=== PATIENT | female | born 1970 | race Caucasian/White ===

== ENCOUNTER 2016-07-05 23:12 | Emergency (ER) | payer MEDICAID ==
[~2016-07-05] VITALS: Ht 165.1 cm; Wt 68.0 kg
[2016-07-05 23:12] VITALS: BP 157/109; PULSE 118; RESP 16; TEMP 97.8; O2SAT 96
[2016-07-05] MEDS ORDERED: IBUPROFEN 800 MG TABLET PO ONE (23:15)
[2016-07-05 23:33] VITALS: BP 154/90; PULSE 108; RESP 16; TEMP 97.8; O2SAT 96
== END 2016-07-05 23:33 ==
LOC: SED 23:12
DX: Z02.89 Encounter for other administrative examinations (principal); R52 Pain, unspecified; I10 Essential (primary) hypertension
CPT/HCPCS: 99283